=== PATIENT | male | born 2000 | race African-American/Black ===

== ENCOUNTER 2018-08-14 12:41 | Emergency (ER) | payer OTHER ==
--- NOTE | 2018-08-14 14:07 | RAD ---
TWO VIEWS OF THE CHEST: COMPARISON: None. HISTORY: Dyspnea. FINDINGS: Two views of the chest show normal sized cardiomediastinal silhouette. There is no evidence of consol idation, mass, or pleural effusion. The bones are unremarkable. IMPRESSION: No evidence of acute cardiopulmonary disease. POS: [facility]
[2018-08-14] MEDS ORDERED: Ondansetron ODT 4 MG TAB ONE (14:25)
[2018-08-14] MEDS ORDERED: Benzonatate 100 MG CAP ONE (14:25)
== END 2018-08-14 14:29 | disposition home or self-care (01) ==
LOC: MADERS 12:41
DX: J06.9 Acute upper respiratory infection, unspecified (principal)
CPT/HCPCS: 71046; 87804; Q0162

== ENCOUNTER 2020-06-02 02:18 | Emergency (ER) | payer SELFPAY ==
[2020-06-02 18:31] LABS: SARS-CoV-2 MS2 Positive; SARS-CoV-2 N Gene Positive; SARS-CoV-2 S Gene Positive; SARS-CoV-2 by NAA DETECTED (NotDetected); SARS-CoV-2 orf1ab Positive
== END 2020-06-02 03:25 | disposition home or self-care (01) ==
LOC: MADERS 02:18
DX: U07.1 COVID-19 (principal)
CPT/HCPCS: 87635; 99284; U0003

== ENCOUNTER 2020-06-17 18:55 | Emergency (ER) | payer SELFPAY | END 2020-06-17 19:10 | disposition left against medical advice (07) | LOC: MADERS 18:55 | DX: Z53.21 Procedure and treatment not carried out due to patient leaving prior to being seen by health care provider (principal) ==

== ENCOUNTER 2020-06-22 16:25 | Emergency (ER) | payer SELFPAY ==
[2020-06-24 04:15] LABS: SARS-CoV-2 PCR by NAA DETECTED (NotDetected)
== END 2020-06-22 17:30 | disposition home or self-care (01) ==
LOC: MADERS 16:25
DX: U07.1 COVID-19 (principal); I10 Essential (primary) hypertension
CPT/HCPCS: 87635; 99283; U0003; U0005

== ENCOUNTER 2020-06-28 18:50 | Emergency (ER) | payer SELFPAY ==
[2020-06-30 08:34] LABS: SARS-CoV-2 PCR by NAA Indeterminate (NotDetected)
== END 2020-06-28 19:05 | disposition home or self-care (01) ==
LOC: MADERS 18:50
DX: Z53.21 Procedure and treatment not carried out due to patient leaving prior to being seen by health care provider (principal); Z20.822 Contact with and (suspected) exposure to COVID-19
CPT/HCPCS: 87635; U0003; U0005

== ENCOUNTER 2020-07-22 02:15 | Emergency (ER) | payer SELFPAY ==
--- NOTE | 2020-07-22 18:20 | RAD ---
LEFT ELBOW FOUR VIEWS: 07/22/20 COMPARISON: None. FINDINGS: The lateral examination is limited secondary to partial extension of the left elbow joint. No obvious elbow joint effusion. There is no displaced fracture or evidence of dislocation seen. IMPRESSION: No displaced fracture or dislocation. If symptoms persist, followup in 7-10 days advised. POS: [facility]
== END 2020-07-22 04:20 | disposition home or self-care (01) ==
LOC: MADERS 02:15
DX: S52.122A Displaced fracture of head of left radius, initial encounter for closed fracture (principal); W18.30XA Fall on same level, unspecified, initial encounter; S53.105A Unspecified dislocation of left ulnohumeral joint, initial encounter
CPT/HCPCS: 24655

== ENCOUNTER 2020-09-29 11:31 | Emergency (ER) | payer SELFPAY | END 2020-09-29 12:45 | disposition home or self-care (01) | LOC: MADERS 11:31 | DX: J06.9 Acute upper respiratory infection, unspecified (principal); F17.210 Nicotine dependence, cigarettes, uncomplicated | CPT/HCPCS: 99283 ==

== ENCOUNTER 2020-09-29 15:48 | Emergency (ER) | payer SELFPAY | END 2020-09-29 16:36 | disposition left against medical advice (07) | LOC: MADERS 15:48 | DX: Z53.21 Procedure and treatment not carried out due to patient leaving prior to being seen by health care provider (principal) ==

== ENCOUNTER 2021-09-27 12:45 | Emergency (ER) | payer SELFPAY ==
[2021-09-28 16:11] LABS: SARS-CoV-2 PCR by NAA DETECTED (NotDetected)
== END 2021-09-27 13:45 | disposition home or self-care (01) ==
LOC: MADERS 12:45
DX: J06.9 Acute upper respiratory infection, unspecified (principal); Z20.822 Contact with and (suspected) exposure to COVID-19; F17.210 Nicotine dependence, cigarettes, uncomplicated
CPT/HCPCS: 99283; U0003; U0005

== ENCOUNTER 2022-12-18 13:32 | Emergency (ER) | payer SELFPAY ==
[2022-12-18] MEDS ORDERED: Ondansetron ODT 4 MG TAB ONE (14:15)
== END 2022-12-18 14:30 | disposition home or self-care (01) ==
LOC: MADERS 13:32
DX: R11.2 Nausea with vomiting, unspecified (principal); F17.210 Nicotine dependence, cigarettes, uncomplicated
CPT/HCPCS: 99283; Q0162

== ENCOUNTER 2023-04-06 14:36 | Emergency (ER) | payer SELFPAY ==
[2023-04-06] MEDS ORDERED: Ibuprofen 800 MG TAB ONE (15:36)
== END 2023-04-06 16:40 | disposition home or self-care (01) ==
LOC: MADERS 14:36
DX: S93.401A Sprain of unspecified ligament of right ankle, initial encounter (principal); I10 Essential (primary) hypertension; F17.210 Nicotine dependence, cigarettes, uncomplicated; W16.822A Jumping or diving into other water striking bottom causing other injury, initial encounter

== ENCOUNTER 2023-07-13 15:30 | Emergency (ER) | payer OTHER ==
[2023-07-13 16:48] LABS: SARS-CoV-2 E Target Negative; SARS-CoV-2 N2 Target Negative; SARS-CoV-2 NAA Rapid Test Not Detected (NotDetected); SARS-CoV-2 RdRP gene Negative
== END 2023-07-13 16:56 | disposition home or self-care (01) ==
LOC: MADERS 15:30
DX: J06.9 Acute upper respiratory infection, unspecified (principal); I10 Essential (primary) hypertension; F17.210 Nicotine dependence, cigarettes, uncomplicated
CPT/HCPCS: 87804; 99284; U0002